=== PATIENT | female | born 1955 | race Two or more races ===

== ENCOUNTER → 2017-09-10 | Day surgery (SDC) | payer OTHER ==
[2017-09-10] VITALS (12 sets, daily range): BP systolic 116–132; BP diastolic 64–104; PULSE 66–86; RESP 12–18; Ht 160 cm; Wt 82.4 kg
[~2017-09-10] VITALS: Ht 160 cm; Wt 82.4 kg
[~2017-09-10] MED LIST: CEFAZOLIN 1 GM INJ ONE; DEXAMETHASONE 4 MG/ML 1 ML INJ ONE; DIPHENHYDRAMINE 50 MG INJ IV PRN; EPHEDrine SULFATE 50 MG/5 ML SYG ONE; ESCI10TA PO; FAMOTIDINE 20 MG INJ ONE; FENTAnyl 50 MCG/ML VIAL IV PRN; HYDROmorphONE (0.2 MG/ML) 10ML SYG IV PRN; LIDOCAINE 2% (SDV) 5 ML INJ ONE; MEPERIDINE 25 MG INJ IV PRN; MIDAZOLAM 1 MG/ML 2 ML INJ ONE; ONDANSETRON 4 MG INJ IV PRN; ONDANSETRON 4 MG INJ ONE; OXYCODONE/ACETAMINOPHEN (5/325) TAB PO PRN; PROCHLORPERAZINE 10 MG INJ IV PRN; PROPOFOL 20 ML ONE
[2017-09-10 10:31] LABS: BASOPHILS % 0.4 % (0.0-2.0); EOSINOPHILS # 0.1 10^3/ul (0.0-0.5); HEMATOCRIT 38.7 % (37.0-47.0); HEMOGLOBIN 13.2 g/dl (12.0-16.0); LYMPHOCYTES # 1.9 10^3/ul (0.8-2.9); LYMPHOCYTES % 38.3 % (15.0-51.0); MEAN CORPUSCULAR HEMOGLOBIN 31.3 pg (29.0-33.0); MEAN CORPUSCULAR HGB CONC 34.1 g/dl (32.0-37.0); MEAN CORPUSCULAR VOLUME 91.7 fl (82.0-101.0); MEAN PLATELET VOLUME 11.6 fl (7.4-10.4); MONOCYTE # 0.4 10^3/ul (0.3-0.9); NEUTROPHIL # 2.6 10^3/ul (1.6-7.5); NEUTROPHILS % 51.9 % (39.0-77.0); PLATELET COUNT 217 10^3/UL (140-415); RED BLOOD COUNT 4.22 10^6/ul (4.20-5.40); RED CELL DISTRIBUTION WIDTH 13.4 % (11.5-14.5)
[2017-09-10 10:50] LABS: ALBUMIN 3.7 g/dl (3.3-4.9); ALBUMIN/GLOBULIN RATIO 1.19; BILIRUBIN,INDIRECT 0.6 mg/dl (0-1.1); BILIRUBIN,TOTAL 0.6 mg/dl (0.2-1.3); TOTAL PROTEIN 6.8 g/dl (6.1-8.1)
[2017-09-10 10:52] LABS: INR 0.9; PROTIME 12.2 Sec (11.9-14.9)
[2017-09-10 10:53] LABS: PARTIAL THROMBOPLASTIN TIME 27.5 Sec (25.0-35.0)
[2017-09-10 11:20] LABS: CALCIUM 9.4 mg/dl (8.4-10.2); CREATININE 0.69 mg/dl (0.44-1.00); POTASSIUM 4.3 mmol/L (3.5-5.1)
--- NOTE | 2017-09-10 12:26 | SIPON ---
Date/Time of Note Date/Time of Note DATE: 09/10/17 TIME: 12:25 Operative Report Preoperative Diagnosis Postmenopausal bleeding Postoperative Diagnosis Same Operation/Procedure Performed D&C Surgeon Carlos Vasquez MD early childhood assistant None Anesthesia: general Estimated blood loss: minimal Transfusion Required none Specimen ECC and EMC Grafts/Implants none Complications none CARLOS VASQUEZ MD Sep 10, 2017 12:26
--- NOTE | 2017-09-10 14:45 | PREOPHP ---
DATE OF ADMISSION: 09/10/2017 HISTORY OF PRESENT ILLNESS: A 62-year-old female is admitted due to history of postmenopausal bleed ing. PAST MEDICAL HISTORY: Unremarkable. PAST SURGICAL HISTORY: Cholecystectomy, dilation and curettage and foot surgery. ALLERGIES: NO KNOWN ALLERGIES. FAMILY HISTORY: Noncontributory. PHYSICAL EXAMINATION: VITAL SIGNS: The patient is afebrile. Vital signs stable. HEAD, NECK AND CHEST: Within normal limits. ABDOMEN: Soft, nontender, nondistended. PELVIC: Normal. EXTREMITIES: Within normal limits. NEUROLOGIC: Within normal limits. IMPRESSION: Postmenopausal bleeding. PLAN: Dilation and curettage. Risks, benefits and alternatives of procedure were explained to the patient. The patient said she understood and gave informed consent for the procedure. Dictated By: CARLOS GOMES/NASREEN Conf#: [id number] DID#: [id number]
--- NOTE | 2017-09-10 17:22 | OPR ---
DATE OF OPERATION: 09/10/2017 PREOPERATIVE DIAGNOSIS: Postmenopausal bleeding. POSTOPERATIVE DIAGNOSIS: Postmenopausal bleeding. OPERATION PERFORMED: Endocervical curettage, dilation and endometrial curettage. SURGEON: Carlos Vee MD ANESTHESIA: General. ANESTHESIOLOGIST: Dr. Cao PROCEDURE: The patient was taken to the operating room and placed on the operating table in supine position. After adequate general anesthesia was given, the patient was placed in dorsal lithotomy p osition. The area was prepared and draped in the usual sterile fashion. Speculum was placed inside the vagina and tenaculum was used to grasp the anterior lip of the cervix. Using endocervical cure tte, endocervical curettage was performed and specimen obtained was sent to Pathology. Next, using cervical dilators, the cervical os was dilated. Using a sharp curette, endometrial curettage was pe rformed and specimen obtained was sent to Pathology. All of the instruments were removed. Adequate hemostasis was assured. Patient tolerated the procedure well. Patient was awakened from anesthesi a and transferred to recovery in stable condition. ESTIMATED BLOOD LOSS: Minimal. COUNTS: All counts were correct. Dictated By: CARLOS GOMES/NTS Conf#: [id number] DID#: [id number]
== END | disposition home or self-care (01) ==
LOC: SDS 08:54
PROVIDERS: ATTEND Obstetrics & Gynecology
DX: N95.0 Postmenopausal bleeding (principal); N85.00 Endometrial hyperplasia, unspecified
CPT/HCPCS: 58120; 80053; 85025; 85610; 85730; 88305; 93005; J0690; J1100; J2250; J2405; Z7512; Z7610

== ENCOUNTER 2019-04-28 10:04 | Day surgery (SDC) | payer MEDICARE, OTHER ==
[2019-04-27 17:11] VITALS: Ht 160 cm; Wt 79.5 kg
[2019-04-28] VITALS (16 sets, daily range): BP systolic 91–117; BP diastolic 44–92; PULSE 70–98; RESP 9–17
[~2019-04-28] VITALS: Ht 160 cm; Wt 79.5 kg
[~2019-04-28 10:04] MED LIST changes: -CEFAZOLIN 1 GM INJ ONE; +DESFLURANE 15 MIN ONE; -DEXAMETHASONE 4 MG/ML 1 ML INJ ONE; -DIPHENHYDRAMINE 50 MG INJ IV PRN; -EPHEDrine SULFATE 50 MG/5 ML SYG ONE; -FAMOTIDINE 20 MG INJ ONE; -FENTAnyl 50 MCG/ML VIAL IV PRN; -HYDROmorphONE (0.2 MG/ML) 10ML SYG IV PRN; -LIDOCAINE 2% (SDV) 5 ML INJ ONE; -MEPERIDINE 25 MG INJ IV PRN; -MIDAZOLAM 1 MG/ML 2 ML INJ ONE; -ONDANSETRON 4 MG INJ IV PRN; -ONDANSETRON 4 MG INJ ONE; -OXYCODONE/ACETAMINOPHEN (5/325) TAB PO PRN; -PROCHLORPERAZINE 10 MG INJ IV PRN; -PROPOFOL 20 ML ONE
[2019-04-28] MEDS ORDERED: LACTATED RINGER'S 1,000 ML IV SCH (11:30)
--- NOTE | 2019-04-28 12:57 | PREAC ---
Date/Time of Note Date/Time of Note DATE: 04/28/19 TIME: 12:54 Anesthesia Eval and Record Evaluation Time Pre-Procedure Interview DATE: 04/28/19 TIME: 12:54 Age 64 Sex female NPO: 8 hrs Preoperative diagnosis postmenopausal bleeding Planned procedure hysteroscopy, D&C Past Medical History Past Medical History: Includes GI: Obesity Psych: Anxiety Surgery & Anesthesia Issues Hx of PONV (yesenia, foot surgery, uterine polyp surgery) Meds Anticoagulation: No Beta Bharat within 24 hr: No Reason Beta Bharat not given: Pt. not on B-Bharat Reported Medications Escitalopram Oxalate* (Lexapro*) 10 Mg Tablet, 10 MG PO DAILY, #30 TAB 09/10/17 Current Medications Lactated Ringer's 1,000 ml @ 0 mls/hr Q0M IV Last administered on 04/28/19at 11:20; Admin Dose 0 MLS/HR; Start 04/28/19 at 11:30 Meds reviewed: Yes Allergies Coded Allergies: No Known Allergy (Unverified , 04/27/19) Allergies Reviewed: Yes Labs/Studies Labs Reviewed: Reviewed by anesthesiologist Result Diagram: 04/28/19 1020 04/28/19 1103 Laboratory Tests 04/28/19 10:20 04/28/19 11:03 Blood Bank Test 04/28/19 11:00 Antibody Screen NEGATIVE Blood Type A POSITIVE test: N/A Studies: ECG (nsr) Pre-procedure Exam Last vitals Vital Signs Date Temp Pulse Resp B/P (MAP) Pulse Ox O2 O2 Flow FiO2 Time Delivery Rate 04/28/19 98.2 79 16 104/67 98 Room Air 11:04 (79) Airway: Adequate mouth opening, Adequate thyromental dist Mallampati: Mallampati II Teeth: Normal Lung: Normal Heart: Normal ASA Physical Status ASA physical status: 2 Emergency: None Planned Anesthetic General/MAC: ETT, LMA Pre-operative Attestations Prior to commencing anesthesia and surgery, the patient was re-evaluated, there was verification of: *The patient's identity *The results of appropriate recent lab work and preoperative vital signs *The above evaluation not changing prior to induction *Anesthetic plan, risk benefits, alternative and complications discussed with pa tient/family; questions answered; patient/family understands, accepts and wishes to proceed. DAKOTA MAGANA Apr 28, 2019 12:57
[2019-04-28] MEDS ORDERED: DEXAMETHASONE 4 MG/ML 5 ML INJ ONE (13:05)
[2019-04-28] MEDS ORDERED: ONDANSETRON 4 MG INJ ONE ×2 (13:05→15:06)
[2019-04-28] MEDS ORDERED: NEOSTIGMINE 3 MG/3 ML SYRINGE ONE (13:05)
[2019-04-28] MEDS ORDERED: ROCURONIUM 50 MG INJ ONE (13:05)
[2019-04-28] MEDS ORDERED: PROPOFOL 20 ML ONE (13:05)
[2019-04-28] MEDS ORDERED: CEFAZOLIN 1 GM INJ ONE (13:05)
[2019-04-28] MEDS ORDERED: GLYCOPYRROLATE 0.4 MG INJ ONE (13:05)
[2019-04-28] MEDS ORDERED: MIDAZOLAM 1 MG/ML 2 ML INJ ONE (13:05)
[2019-04-28] MEDS ORDERED: FENTAnyl 50 MCG/ML VIAL ONE ×2 (13:05→15:06)
--- NOTE | 2019-04-28 14:35 | SIPON ---
Date/Time of Note Date/Time of Note DATE: 04/28/19 TIME: 14:32 Operative Report Preoperative Diagnosis Postmenopausal bleeding Postoperative Diagnosis Same, endometrial cyst Operation/Procedure Performed Hysteroscopy, resection of endometrial cyst Surgeon Carlos Vasquez MD medical assistant instructor None Anesthesia: general Estimated blood loss: minimal Transfusion Required none Specimen ECC, endometrial cyst and endometrial tissue Grafts/Implants none Complications none CARLOS VASQUEZ MD Apr 28, 2019 14:35
--- NOTE | 2019-04-28 14:48 | PREOPHP ---
DATE OF ADMISSION: 04/28/2019 HISTORY OF PRESENT ILLNESS: A 64-year-old female 2, para 2, last menstrual period about 15 y ears prior to admission, was admitted with history of vaginal spotting. PAST MEDICAL HISTORY: Unremarkable. PAST SURGICAL HISTORY: Cholecystectomy and leg surgery for fracture of the leg. ALLERGIES: NO KNOWN ALLERGIES. FAMILY HISTORY: Noncontributory. PHYSICAL EXAMINATION: VITAL SIGNS: The patient is afebrile. Vital signs stable. HEAD, NECK AND CHEST: Within normal limits. ABDOMEN: Soft, nontender, nondistended. PELVIC: Normal. EXTREMITIES: Within normal limits. NEUROLOGIC: Within normal limits. IMPRESSION: Postmenopausal bleeding. PLAN: Hysteroscopy, dilation and curettage. Risks, benefits and alternatives of the procedure were explained to the patient. The patient said she understood and gave informed consent for the procedur e. Dictated By: CARLOS GOMES/NASREEN Conf#: [id number] DID#: [id number]
--- NOTE | 2019-04-28 15:07 | RADRPT ---
Vent Rate: 65 bpm RR Interval: 920 msec [place] Interval: 163 msec QRS Duration: 89 msec QT Interval: 398 msec QTC Interval: 415 msec P-R-T [place]: 1 - -20 - 4 degrees Sinus rhythm...normal P axis, V-rate 50- 99 Electronically Signed By: Dexter Pino
[2019-04-28] MEDS ORDERED: HYDROmorphONE 1 MG/5 ML IV SYRINGE IV PRN ×2 (15:30)
[2019-04-28] MEDS ORDERED: FENTAnyl 50 MCG/ML VIAL IV PRN ×2 (15:30)
[2019-04-28] MEDS ORDERED: ONDANSETRON 4 MG INJ IV PRN (15:30)
--- NOTE | 2019-04-28 17:41 | OPR ---
DATE OF OPERATION: 04/28/2019 PREOPERATIVE DIAGNOSIS: Postmenopausal bleeding. POSTOPERATIVE DIAGNOSES: Postmenopausal bleeding and endometrial cyst. OPERATION PERFORMED: Hysteroscopy, resection of endometrial cyst. SURGEON: Carlos Vee MD ANESTHESIA: General. ANESTHESIOLOGIST: Vin Scales MD DESCRIPTION OF PROCEDURE: The patient was taken to the operating room and placed on the operating ta ble in supine position. After adequate general anesthesia was given, the patient was placed in dorsa l lithotomy position. The area was prepared and draped in the usual sterile fashion. Speculum was p laced inside the vagina and tenaculum was used to grasp the anterior lip of the cervix. Using Alexander tadeo curet, endocervical curettage was performed and specimen obtained was sent to pathology. Next, t he cervical os was dilated to size 6. Hysteroscope was placed inside the uterine cavity. The uterin e cavity was explored. There was an area of the endometrium which appeared to be an endometrial cyst . Resectoscope was passed through the hysteroscope and using the resectoscope endometrial cyst was r esected and also there was some superficial section of the endometrial tissue and the tissue obtained was sent to pathology. All the instruments were removed. Adequate hemostasis was assured. The pat ient tolerated the procedure well. The patient was awakened from anesthesia and transferred to [facility] in stable condition. Estimated blood loss minimal. At the end of the procedure, there was about 200 mL of fluid deficit. Dictated By: CARLOS GOMES/NTS Conf#: [id number] DID#: [id number]
== END 2019-04-28 16:33 | disposition home or self-care (01) ==
LOC: SDS 10:04
PROVIDERS: ATTEND Obstetrics & Gynecology
DX: N85.8 Other specified noninflammatory disorders of uterus (principal); N95.0 Postmenopausal bleeding
CPT/HCPCS: 58563; 71045; 80053; 85025; 86850; 86900; 86901; 88305; 93005; J1100; J2250; J2405; J2710; J3010; J0690